=== PATIENT | male | born 1995 ===

== ENCOUNTER 2017-12-16 07:56 | Emergency (ER) | payer OTHER ==
[2017-12-16 08:11] VITALS: BP 112/71; PULSE 58; RESP 18; TEMP 98.4; O2SAT 100
[2017-12-16] MEDS ORDERED: Fluorescein 1 mg Ophthalmic Strip OS ONE (08:12)
[2017-12-16] MEDS ORDERED: Tetracaine 0.5% Ophth 2 ML BOTTLE OU ONE (08:12)
[2017-12-16] MEDS ORDERED: Fluorescein 1 mg Ophthalmic Strip ONE (08:18)
[2017-12-16] MEDS ORDERED: Tetracaine 0.5% Ophth (OR ONLY) ONE (08:23)
--- NOTE | 2017-12-16 08:45 | C.PDOC ---
History Of Present Illness 22 year old male presents to ED for evaluation of right eye foreign body sensation with associated with pain since last night. Pt states he was walking home when something flew into his right eye. Notes that he tried to rinse it out with water, but continues to have pain in that eye. Pt states he is supposed to wear eyeglasses but they are broken. Denies visual change, headache , rash, fever, diplopia, eye discharge, or any other complaints at this time. Time Seen by Provider: 12/16/17 08:06 Chief Complaint (Nursing): Eye Problem History Per: Patient History/Exam Limitations: no limitations Onset/Duration Of Symptoms: Hrs Current Symptoms Are (Timing): Still Present Quality: "Pain" Wears Contact Lens?: No Associated Symptoms: Pain, FB Sensation. denies: Decreased Vision Recent travel outside of the [place]: No Additional History Per: Patient Past Medical History Reviewed: Historical Data, Nursing Documentation, Vital Signs Vital Signs: Last Vital Signs Temp 98.4 F 12/16/17 08:07 Pulse 58 L 12/16/17 08:07 Resp 18 12/16/17 08:07 BP 112/71 12/16/17 08:07 Pulse Ox 100 12/16/17 14:58 Family History: States: Unknown Family Hx - Social History Hx Alcohol Use: No Hx Substance Use: No - Immunization History Hx Tetanus Toxoid Vaccination: No Hx Influenza Vaccination: No Hx Pneumococcal Vaccination: No Review Of Systems Except As Marked, All Systems Reviewed And Found Negative. Constitutional: Negative for: Fever, Chills Eyes: Positive for: Pain (right), Other (foreign body in right eye). Negative for: Vision Change Neurological: Negative for: Headache, Dizziness Physical Exam - Physical Exam Appears: Non-toxic, No Acute Distress Skin: Normal Color, Warm, Dry Head: Atraumatic, Normacephalic Eye(s): bilateral: PERRL, EOMI, Other (Right eye is mildly injected. (+) 1mm foreign body noted on lid inverison. no fluorescein uptake), left: Normal Inspection Nose: Normal Oral Mucosa: Moist Neck: Normal ROM, Supple Chest: Symmetrical Respiratory: No Accessory Muscle Use Extremity: Normal ROM Neurological/Psych: Oriented x3, Normal Speech ED Course And Treatment O2 Sat by Pulse Oximetry: 100 (RA) Pulse Ox Interpretation: Normal Progress Note: Right eye foreign body was removed with Qtip. Right eye was irrigated. Pt tolerated procedure well, no complications. Pt is being discharged home with instructions to follow up with eye doctor in 1-3 days. Disposition - Disposition Referrals: Ramin Amaral [Staff Provider] - Disposition: HOME/ ROUTINE Disposition Time: 08:43 Condition: STABLE Additional Instructions: Follow up with eye doctor in 1-2 days. Return to ER if symptoms persist or worsen. 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 - Scribe Statement The provider has reviewed the documentation as recorded by the Scribe Inez Arredondo All medical record entries made by the Scribe were at my direction and personally dictated by me. I have reviewed the chart and agree that the record accurately reflects my personal performance of the history, physical exam, medical decision making, and the department course for this patient. I have also personally directed, reviewed, and agree with the discharge instructions and disposition.
== END 2017-12-16 08:55 | disposition home or self-care (01) ==
LOC: C.ER 07:56
DX: T15.91XA Foreign body on external eye, part unspecified, right eye, initial encounter (principal); X58.XXXA Exposure to other specified factors, initial encounter

== ENCOUNTER 2018-01-04 14:31 | Emergency (ER) | payer OTHER ==
[2018-01-04 14:45] VITALS: O2SAT 99
[2018-01-04] MEDS ORDERED: Amoxicillin-Clav 875-125 mg Tab PO STA (15:03)
--- NOTE | 2018-01-04 15:07 | C.PDOC ---
History Of Present Illness 22 y/o male with no significant PMHx comes to the ED for evaluation of body aches, low grade fever, chills for the past 3 days associated with a sore throat. Today, developed more difficulty swallowing. Otherwise, pt denies high fever, headache, dizziness, drooling, dyspnea, cough, CP, SOB, wheezing, abd. pain, N/V/D, back pain, denies recent travel or known sick contact. Ambulate to Ed for evaluation, not in any apparent distress. Time Seen by Provider: 01/04/18 14:52 Chief Complaint (Nursing): Flu-like Symptoms History Per: Patient History/Exam Limitations: no limitations Onset/Duration Of Symptoms: Days Current Symptoms Are (Timing): Still Present Past Medical History Reviewed: Historical Data, Nursing Documentation, Vital Signs Vital Signs: Last Vital Signs Temp 100.5 F H 01/04/18 14:42 Pulse 81 01/04/18 14:42 Resp 18 01/04/18 14:42 BP 112/73 01/04/18 14:42 Pulse Ox 99 01/04/18 15:34 - Medical History PMH: No Chronic Diseases Other Surgeries: Right wrist surgery Family History: States: Unknown Family Hx - Social History Hx Alcohol Use: Yes (marijuana) Hx Substance Use: No - Immunization History Hx Tetanus Toxoid Vaccination: No Hx Influenza Vaccination: No Hx Pneumococcal Vaccination: No Review Of Systems Constitutional: Positive for: Fever, Chills, Other (Body aches) ENT: Negative for: Other (drooling) Cardiovascular: Negative for: Chest Pain Respiratory: Negative for: Cough, Shortness of Breath, Wheezing Gastrointestinal: Negative for: Nausea, Vomiting, Diarrhea Neurological: Negative for: Headache, Dizziness Physical Exam - Physical Exam Appears: Well, Non-toxic, No Acute Distress Skin: Normal Color, Warm, No Rash Head: Normacephalic Eye(s): bilateral: PERRL Ear(s): Bilateral: Normal Nose: No Flaring, No Discharge Oral Mucosa: Moist, No Drooling, No Trismus Tongue: Normal Appearing Lips: Normal Appearing Throat: Erythema (pharyngeal erythema and edema), Exudate (scant exudate on the right side), No Drooling, Other (uvula midline, no edema.) Neck: Trachea Midline, No Midline Cervical Tenderness, No Paracervical Tenderness, Supple Lymphatic: Adenopathy (mild anterior cervical lymphadenopathy bilaterally) Chest: Symmetrical, No Deformity, No Tenderness Cardiovascular: Rhythm Regular, No Murmur Respiratory: No Decreased Breath Sounds, No Accessory Muscle Use, No Rales, No Rhonchi, No Wheezing Gastrointestinal/Abdominal: Soft, No Tenderness Extremity: Normal ROM, Capillary Refill (less than 2sec), No Deformity, No Swelling Neurological/Psych: Oriented x3, Normal Speech, Normal Cranial Nerves Gait: Steady ED Course And Treatment O2 Sat by Pulse Oximetry: 99 (RA) Pulse Ox Interpretation: Normal Progress Note: Patient treated with PO Motrin, Augmentin, Prednisone. Flu swab sent. On re-evaluation, pt is afebrile, hemodynmaicaly stable. Non-toxic. Tolerate Po well in ED. PuslEOx 99% RA. Neck: Supple, (-) meningeal sign. ENT : exam c/w acute pharyngitis. uvula midline, no edema. Lungs: CTA B/L, BS equal B/L. Abd: benign. Neurologicaly intact. Influenza neg. Pt advised. ref. to f/u with PMD in 2-3 days for re-eavl. return if any worsening or new changes. Disposition Counseled Patient/Family Regarding: Studies Performed, Diagnosis, Need For Followup, Rx Given - Disposition Referrals: Bharath Eduardo MD [Staff Provider] - Disposition: HOME/ ROUTINE Disposition Time: 15:29 Condition: STABLE Additional Instructions: Encourage fluids take medication as prescribed Follow up with PMD in 2-3 days for re-evaluation. return to ED if any worsening or new changes. 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 - Scribe Statement The provider has reviewed the documentation as recorded by the Scribe (Leslie Jason) All medical record entries made by the Scribe were at my direction and personally dictated by me. I have reviewed the chart and agree that the record accurately reflects my personal performance of the history, physical exam, medical decision making, and the department course for this patient. I have also personally directed, reviewed, and agree with the discharge instructions and disposition.
[2018-01-04] MEDS ORDERED: Amoxicillin-Clav 875-125 mg Tab PO ONE (15:11)
[2018-01-04 15:50] VITALS: BP 101/61; PULSE 89; RESP 16; TEMP 100.2
== END 2018-01-04 15:50 | disposition home or self-care (01) ==
LOC: C.ER 14:31
DX: J02.9 Acute pharyngitis, unspecified (principal)

== ENCOUNTER 2018-11-18 22:36 | Emergency (ER) | payer OTHER ==
[2018-11-18 23:09] VITALS: BP 118/68; PULSE 84; RESP 22; TEMP 97.3; O2SAT 95
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
== END 2018-11-19 | disposition home or self-care (01) ==
LOC: C.ER 22:36
DX: S00.03XA Contusion of scalp, initial encounter (principal); S20.222A Contusion of left back wall of thorax, initial encounter; Y08.89XA Assault by other specified means, initial encounter